=== PATIENT | male | born 1960 | race Caucasian/White ===

== ENCOUNTER 2019-04-04 11:50 | Emergency (ER) | payer BC, OTHER ==
[2019-04-04 12:01] VITALS: BP 127/73
--- NOTE | 2019-04-04 12:34 | UC ---
Shoulder Pain HPI - HPI Summary HPI Summary: 2 MONTHS AGO PATIENT INJURED HIS RIGHT SHOULDER WHEN LIFTING SOMETHING HEAVY. SYMPTOMS IMPROVED OVER THE FOLLOWING MONTH BUT A FEW WEEKS AGO PAIN WORSENED AGAIN. PATIENT DENIES NUMBNESS/TINGLING/WEAKNESS. 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 HAS NOT TRIED ANY ANALGESICS. 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 - Onset/Duration: Gradual Onset, Lasting Weeks, Still Present Timing: Constant Severity Initially: Moderate Severity Currently: Moderate Location Of Pain: Is Discrete @ - RIGHT SHOULDER Pain Intensity: 9 Pain Scale Used: 0-10 Numeric Character: Sharp Aggravating Factor(s): Movement Alleviating Factor(s): Rest Associated Signs And Symptoms: Positive: Negative Related History: Dominant Hand Right - Allergies/Home Medications Allergies/Adverse Reactions: Allergies Allergy/AdvReac Type Severity Reaction Status Date / Time No Known Allergies Allergy Verified 04/04/19 12:02 PMH/Surg Hx/FS Hx/Imm Hx Previously Healthy: Yes - Surgical History Surgical History: Yes Surgery Procedure, Year, and Place: right knee cap - Family History Known Family History: Positive: Non-Contributory - Social History Alcohol Use: Rare Substance Use Type: None Smoking Status (MU): Heavy Every Day Tobacco Smoker Review of Systems All Other Systems Reviewed And Are Negative: Yes Constitutional: Positive: Negative Skin: Positive: Negative Respiratory: Positive: Negative Cardiovascular: Positive: Negative Gastrointestinal: Positive: Negative Musculoskeletal: Positive: Arthralgia, Decreased ROM Physical Exam Triage Information Reviewed: Yes Appearance: Well-Appearing, No Pain Distress, Well-Nourished Vital Signs: Initial Vital Signs Temp 99.5 F 04/04/19 11:58 Pulse 100 04/04/19 11:58 Resp 20 04/04/19 11:58 BP 127/73 04/04/19 11:58 Pulse Ox 100 04/04/19 11:58 Vital Signs Reviewed: Yes Eyes: Positive: Conjunctiva Clear ENT: Positive: Hearing grossly normal Neck: Positive: Supple Respiratory: Positive: No respiratory distress, No accessory muscle use Cardiovascular: Positive: Pulses Normal Abdomen Description: Positive: Soft Musculoskeletal: Positive: No Edema, ROM Limited @ - RIGHT SHOULDER, Other: - RIGHT SHOULDER NEG DELCID, EMPTY CAN, CROSS ARM, YERGASON. MILDLY TENDER DIFFUSELY Neurological: Positive: Alert Psychological: Positive: Age Appropriate Behavior Skin: Negative: Rashes Diagnostics - Radiology RIGHT SHOULDER XRAYS Radiology Interpretation Completed By: Radiologist Summary of Radiographic Findings: NO ACUTE OSSEOUS INJURY Shoulder Course/Dx - Course Course Of Treatment: SHOULDER X-RAYS TODAY UNREMARKABLE. LIKELY MUSCULOSKELETAL STRAIN. SLING APPLIED BY RN FOR COMFORT. ADVISED OTC MEDICATIONS NEEDED AND ORTHOPEDIC FOLLOW-UP IF SYMPTOMS NOT IMPROVING OVER THE NEXT WEEK OR SO. - Differential Dx/Diagnosis Provider Diagnosis: Right shoulder pain Discharge ED - Sign-Out/Discharge Documenting (check all that apply): Patient Departure All imaging exams completed and their final reports reviewed: Yes - Discharge Plan Condition: Stable Disposition: HOME Patient Education Materials: Shoulder Separation Exercises (GEN), Shoulder Pain (ED) Referrals: Maxwell Diallo MD [Medical Doctor] - 1 Week Additional Instructions: X-RAYS TODAY UNREMARKABLE. WEAR THE SLING NEEDED FOR DISCOMFORT. OTC MEDICATIONS FOR PAIN. BE SURE TO GO THROUGH SLOW RANGE OF MOTION EXERCISES ABLE TO PREVENT STIFFENING UP AND MAKING THE DISCOMFORT WORSE. HANDOUT OF SHOULDER EXERCISES PROVIDED. CALL ORTHOPEDICS TO SCHEDULE FOLLOW-UP APPOINTMENT FOR THE NEXT WEEK FOR FURTHER EVALUATION AND TO DISCUSS TREATMENT OPTIONS. - Billing Disposition and Condition Condition: STABLE Disposition: Home
== END 2019-04-04 13:36 | disposition home or self-care (01) ==
LOC: UCEAST 11:50
DX: M25.511 Pain in right shoulder (principal)
CPT/HCPCS: 99202; G0463